=== PATIENT | female | born 1985 | race Caucasian/White ===

== ENCOUNTER 2017-02-08 17:37 | Inpatient (IN) | payer SELFPAY ==
[~2017-02-08] VITALS: Ht 154.9 cm; Wt 67.1 kg
[2017-02-08] MEDS ORDERED: DEXTROSE 5%-LR 1,000 ML IV SCH (17:44)
[2017-02-08 17:48] VITALS: Ht 154.9 cm; Wt 67.1 kg
[2017-02-08] MEDS ORDERED: PRENAT PO (17:50)
[2017-02-08] MEDS ORDERED: CEPH500C PO (17:50)
[2017-02-08] MEDS ORDERED: MISOPROSTOL 200 MCG TAB PR PRN (18:00)
[2017-02-08] MEDS ORDERED: CARBOPROST 250 MCG INJ IM PRN (18:00)
[2017-02-08] MEDS ORDERED: IBUPROFEN 600 MG TAB PO PRN (18:00)
[2017-02-08] MEDS ORDERED: OXYTOCIN 30 UNITS/LR 500 ML IV PRN (18:00)
[2017-02-08] MEDS ORDERED: LIDOCAINE 1% (MPF) 30 ML INJ INJ PRN (18:00)
[2017-02-08] MEDS ORDERED: LACTATED RINGER'S 1,000 ML IV PRN (18:00)
[2017-02-08] MEDS ORDERED: BUTORPHANOL 2 MG INJ IV PRN (18:00)
[2017-02-08] MEDS ORDERED: OXYTOCIN 30 UNITS/LR 500 ML IV SCH ×2 (18:00)
[2017-02-08] MEDS ORDERED: METHYLERGONOVINE 0.2 MG INJ IM PRN (18:00)
[2017-02-08 18:14] VITALS: BP 118/73; PULSE 106; RESP 16
[2017-02-08 18:15] LABS: ADD SCAN DIFF NO
[2017-02-08 18:18] LABS: BASOPHILS % 0.2 % (0.0-2.0); EOSINOPHILS # 0.1 10^3/ul (0.0-0.5); EOSINOPHILS % 0.5 % (0.0-7.0); HEMATOCRIT 35.2 % (37.0-47.0); HEMOGLOBIN 11.5 g/dl (12.0-16.0); LYMPHOCYTES # 1.9 10^3/ul (0.8-2.9); LYMPHOCYTES % 15.2 % (15.0-51.0); MEAN CORPUSCULAR HEMOGLOBIN 27.2 pg (29.0-33.0); MEAN CORPUSCULAR HGB CONC 32.7 g/dl (32.0-37.0); MEAN CORPUSCULAR VOLUME 83.2 fl (82.0-101.0); MONOCYTE # 0.7 10^3/ul (0.3-0.9); MONOCYTES % 5.2 % (0.0-11.0); NEUTROPHIL # 9.8 10^3/ul (1.6-7.5); NEUTROPHILS % 78.1 % (39.0-77.0); PLATELET COUNT 156 10^3/UL (140-415); RED BLOOD COUNT 4.23 10^6/ul (4.20-5.40); RED CELL DISTRIBUTION WIDTH 16.2 % (11.5-14.5); WHITE BLOOD COUNT 12.5 10^3/ul (4.8-10.8)
[2017-02-08] MEDS: LACTATED RINGER'S 1,000 ML IV SCH ×2 (18:31→19:05)
[2017-02-08 18:32] LABS: INR 0.94; PROTIME 12.6 Sec (12.2-14.2)
[2017-02-08 18:33] LABS: PARTIAL THROMBOPLASTIN TIME 26.1 Sec (25.0-35.0)
[2017-02-08] MEDS ORDERED: FENTAnyl 2MCG/ML-ROPIV 0.2% 100 ML ONE (19:32)
[2017-02-08] MEDS ORDERED: NALOXONE (0.4 MG/ML) INJ IV PRN (20:00)
[2017-02-08] MEDS ORDERED: FENTAnyl 2MCG/ML-ROPIV 0.2% 100 ML BAG EPI SCH (20:00)
[2017-02-08] MEDS ORDERED: CEFAZOLIN 2 GM/50 ML (PMX) 50 ML IVPB SCH (21:00)
[2017-02-08 21:12] LABS: BARBITURATES NEGATIVE (NEGATIVE); BENZODIAZEPINES NEGATIVE (NEGATIVE); CANNABINOIDS NEGATIVE (NEGATIVE); COCAINE NEGATIVE (NEGATIVE); OPIATES NEGATIVE (NEGATIVE)
[2017-02-09] VITALS (7 sets, daily range): BP systolic 106–136; BP diastolic 65–78; PULSE 68–89; RESP 18–20
[2017-02-09] MEDS ORDERED: OXYTOCIN 30 UNITS/LR 500 ML IV SCH (00:30)
[2017-02-09] MEDS ORDERED: ACETAMINOPHEN 325 MG TAB PO ONE (00:30)
[2017-02-09] MEDS ORDERED: CITRIC ACID/SODIUM CITRATE 15 ML CUP PO ONE (00:30)
[2017-02-09] MEDS ORDERED: CITRIC ACID/NA CITRATE 30 ML CUP ONE (00:36)
[2017-02-09] MEDS ORDERED: CITRIC ACID/NA CITRATE 30 ML CUP PO ONE (00:54)
[2017-02-09] MEDS ORDERED: LACTATED RINGER'S 1,000 ML IV* SCH (03:58)
[2017-02-09] MEDS: OXYTOCIN 30 UNITS/LR 500 ML IV SCH ×2 (03:58→06:21)
[2017-02-09] MEDS ORDERED: OXYTOCIN 30 UNITS/LR 500 ML IV PRN (04:00)
[2017-02-09] MEDS ORDERED: CARBOPROST 250 MCG INJ IM PRN (04:00)
[2017-02-09] MEDS ORDERED: METHYLERGONOVINE 0.2 MG INJ IM PRN (04:00)
[2017-02-09] MEDS ORDERED: MISOPROSTOL 200 MCG TAB PR PRN (04:00)
--- NOTE | 2017-02-09 04:04 | LDN ---
Date/Time of Note Date/Time of Note DATE: 02/09/17 TIME: 04:02 Delivery Summary over an intact perineum of a viable baby boy weighing 6# 1oz, or 2745 grams , 18" long, and with Apgars of 9/9. Weeks of Gestation 37w 2d Placenta Delivered: Spontaneously Meconium: none Episiotomy: No Perineal laceration: 0 Laceration repair: None Anesthesia type: Epidural Estimated blood loss: 150 Sponge & Needle done & correct: Yes All needle counts correct: Yes Any foreign bodies felt in the: No (vagina) Problems: Delivery Information Sex Infant Sex: male Apgars 1 Minute: 9 5 Minute: 9 Suctioning Nose & mouth suctioned at hugo: Yes Delee suction performed: No Umbilical Cord Umbilical cord with: 3 Vessels Cord presentations: no nuchal cord Cord Blood was obtained: Yes Mother & Baby Disposition Disposition Mom & Baby to Maternity; Good: Yes Baby to NICU: No JANE MCCOY MD February 09, 2017 04:04
--- NOTE | 2017-02-09 04:09 | HP ---
Date/Time of Note Date/Time of Note DATE: 02/09/17 TIME: 04:04 OB - History Hx of Present Free Text/Dictation 31 y.o. , grand multip, with an IUP at 37w 2d presented to the office on afternoon with c/o pressure, bloody show and was found to be charlie q 2- 3 minutes and had a cervical exam of 5-6 cm. She was sent over to the hospital for delivery. Last Menstrual Period: May 24, 2016 Estimated Due Date: February 28, 2017 : 8 Para: 7 Care: Good Care Ultrasounds: Normal mid trimester US Obstetrical Complications: None Medical Complications: None Past Family/Social History * Past Medical, Surgical, Family and Obstetric Histories reviewed from chart. Blood Type: B- Rubella: immune RPR/VDRL: Negative GBS Status: Negative HBsAG: Negative OB Admission Exam Vital Signs Vital Signs BP 118/73 T=98.7 Physical Exam HEENT: WNL Heart: Rhythm Normal Lungs: Clear Abdomen: WNL Extremities: Normal Reflexes: Normal Cervical Dilatation: 6cm Effacement: 75% Station: -2 Membranes: Intact Heart Rate: 130's Accelerations: Accelerations Present Decelerations: No Decelerations Varibility: Moderate Contractions on Admission: < 5 Minutes Apart Last 72 hours Lab Results CBC & BMP 02/08/17 17:45 OB Assessment/Plan Reason for admission: active labor Plan: Expectant Management JANE MCCOY MD February 09, 2017 04:09
[2017-02-09] MEDS: OXYCODONE/ASPIRIN (4.88/325) TAB PO PRN ×5 (04:26→20:04)
[2017-02-09] MEDS: IBUPROFEN 600 MG TAB PO SCH ×3 (10:59→17:16)
--- NOTE | 2017-02-09 19:38 | PD.PPDC ---
YACHT HAND Discharge Instruction Condition Patient Condition: Good Diet Diet: Resume Regular Diet Activity/Restrictions Activity: Normal Activity May Shower Restrictions: No Sexual Activity Nothing in the Vagina No [place] No Tampons, douche Follow-up Follow-up with Physician: 6, Week/Weeks Return to clinic for [employer] Instructions: Fever greater than 101 Chills Worsening abdominal pain Excessive Vaginal Bleeding OB Instructions: Breast Tenderness Depression JANE MCCOY MD February 09, 2017 19:38
--- NOTE | 2017-02-09 19:42 | DS ---
Date/Time of Note Date/Time of Note DATE: 02/09/17 TIME: 19:40 Obstetrical Discharge Record Final Diagnosis Final Diagnosis: Term delivered Vaginal Delivery Obstetrical Delivery: Spontaneous Complications Augmentation: Yes Induction: No Condition on Discharge Physical Assessment Last Vitals: 98.5 BP 106/78 Voiding: Yes Bowel Movement: Yes Breast: Soft, non-tender Fundus: Firm Calf Tenderness: No Patient Condition: Good JANE MCCOY MD February 09, 2017 19:42
[2017-02-10] MEDS: IBUPROFEN 600 MG TAB PO SCH ×3 (00:10→12:00)
[2017-02-10] MEDS: OXYCODONE/ASPIRIN (4.88/325) TAB PO PRN ×3 (00:17→09:27)
[2017-02-10 03:40] VITALS: BP 102/67; PULSE 81; RESP 18
[2017-02-10 07:30] VITALS: BP 116/70; PULSE 84; RESP 18
[2017-02-10 07:57] LABS: ADD SCAN DIFF NO
[2017-02-10 08:40] LABS: BASOPHILS % 0.4 % (0.0-2.0); EOSINOPHILS # 0.3 10^3/ul (0.0-0.5); EOSINOPHILS % 2.7 % (0.0-7.0); HEMATOCRIT 31.1 % (37.0-47.0); HEMOGLOBIN 10.1 g/dl (12.0-16.0); LYMPHOCYTES # 2.4 10^3/ul (0.8-2.9); LYMPHOCYTES % 23.2 % (15.0-51.0); MEAN CORPUSCULAR HEMOGLOBIN 27.4 pg (29.0-33.0); MEAN CORPUSCULAR HGB CONC 32.5 g/dl (32.0-37.0); MEAN CORPUSCULAR VOLUME 84.5 fl (82.0-101.0); MEAN PLATELET VOLUME 11.7 fl (7.4-10.4); MONOCYTE # 0.6 10^3/ul (0.3-0.9); MONOCYTES % 5.8 % (0.0-11.0); NEUTROPHIL # 7.1 10^3/ul (1.6-7.5); PLATELET COUNT 153 10^3/UL (140-415); RED BLOOD COUNT 3.68 10^6/ul (4.20-5.40); RED CELL DISTRIBUTION WIDTH 16.4 % (11.5-14.5); WHITE BLOOD COUNT 10.5 10^3/ul (4.8-10.8)
[2017-02-11] MEDS ORDERED: DIPHTH/TET/ACEL PERTUSS (ADULT) 0.5 ML VIAL IM* ONE (09:00)
== END 2017-02-10 12:45 | disposition home or self-care (01) | DRG 775 ==
LOC: L-D 17:37 → PP1 02-09 05:13
PROVIDERS: ADMIT Obstetrics & Gynecology; ATTEND Obstetrics & Gynecology
PROC: 10E0XZZ Delivery of Products of Conception, External Approach (ICD-10-PCS; principal; 2017-02-09)
DX: O80 Encounter for full-term uncomplicated delivery (principal); Z37.0 Single live birth; Z3A.37 37 weeks gestation of pregnancy
CPT/HCPCS: 62319; 80307; 82947; 85025; 85610; 85730; 86592; 86850; 86870; 86885; 86900; 86901; 90715; J0690; J2210; J2590; J2790; J3010; J7120; J7121